=== PATIENT | female | born 2000 | race Caucasian/White ===

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

== ENCOUNTER 2019-04-18 19:24 | Emergency (ER) | payer OTHER ==
[2019-04-18 20:26] LABS: Bacteria/HPF None Seen HPF (None Seen); Bilirubin Negative (Negative); Blood, Urine Negative (Negative); Clarity Clear (Clear); Glucose, Urine (Dipstick) Normal (Negative); Leukocyte 75 Leu/uL (Negative); Nitrite Negative (Negative); Pregnancy Test - Urine (BHCG) Negative (Negative); Protein, Urine (Dipstick) 10 mg/dL (Neg-Trace); RBC/HPF 0-3 HPF (0-3); WBC/HPF 0-3 HPF (0-3)
[2019-04-18 20:27] LABS: Pregu Control Background? CLEAR/WHITE (CLR/WHITE); Pregu Control Bar Appear? YES (CONTROL BAR)
[2019-04-18] MEDS ORDERED: Azithromycin 250 MG TAB ONE (20:38)
[2019-04-18] MEDS ORDERED: cefTRIAXone\\ROCEPHIN 250 MG VIAL ONE (20:38)
[2019-04-18] MEDS ORDERED: Lidocaine 1% PF 5 ML VIAL ONE (20:38)
== END 2019-04-18 21:05 | disposition home or self-care (01) ==
LOC: ERS 19:24
DX: N89.8 Other specified noninflammatory disorders of vagina (principal); R30.0 Dysuria; Z87.891 Personal history of nicotine dependence
CPT/HCPCS: 81003; 81015; 81025; 87480; 87491; 87510; 87591; 87660; J0696; J2001

== ENCOUNTER 2020-10-06 22:14 | Emergency (ER) | payer OTHER ==
[2020-10-07 05:25] LABS: SARS-CoV-2 PCR by NAA Not Detected (NotDetected)
== END 2020-10-07 01:07 | disposition home or self-care (01) ==
LOC: ERS 22:14
DX: B34.9 Viral infection, unspecified (principal); Z20.822 Contact with and (suspected) exposure to COVID-19
CPT/HCPCS: 87081; 87430; 87635; 87804; 99283; U0003; U0005

== ENCOUNTER 2020-10-11 00:13 | Emergency (ER) | payer OTHER ==
[2020-10-11 02:19] LABS: Bilirubin Negative (Negative); Blood, Urine 3+ (Negative); Clarity Turbid (Clear); Glucose, Urine (Dipstick) Normal (Negative); Ketone, Urine 100 mg/dL (Negative); Leukocyte 500 Leu/uL (Negative); Nitrite Negative (Negative); Protein, Urine (Dipstick) 300 mg/dL (Neg-Trace); RBC/HPF Greater than 50 HPF (0-3); Specific Gravity, Urine 1.027 (1.002-1.036); Squamous Epithelial None Seen HPF (0-3); Urobilinogen Normal mg/dL (Less than 2); WBC/HPF Greater than 50 HPF (0-3)
[2020-10-11 02:28] LABS: Bacteria/HPF Rare-Few HPF (None Seen)
== END 2020-10-11 03:12 | disposition home or self-care (01) ==
LOC: ERS 00:13
DX: O20.0 Threatened abortion (principal); O23.41 Unspecified infection of urinary tract in pregnancy, first trimester; Z3A.01 Less than 8 weeks gestation of pregnancy; Z87.891 Personal history of nicotine dependence
CPT/HCPCS: 36415; 76856; 81003; 81015; 84702; 86850; 86900; 86901

== ENCOUNTER 2023-04-13 01:24 | Emergency (ER) | payer OTHER ==
[2023-04-13] MEDS ORDERED: Ketorolac Tromethamine 30 MG/ML VIAL ONE (01:50)
[2023-04-13] MEDS ORDERED: diphenhydrAMINE 50 MG/ML VIAL ONE (01:50)
[2023-04-13] MEDS ORDERED: Metoclopramide HCl 10 MG/2 ML VIAL ONE (01:50)
[2023-04-13 02:28] LABS: #Eosinphils 0.2 thou/uL (0.0-0.7); #Monocytes 0.4 thou/uL (0.11-0.59); #Neutrophils 4.5 thou/uL (1.40-6.50); %Basophils 0.3 % (0.0-1.0); %Eosinophils 2.2 % (0.0-10.0); %Lymphocytes 43.4 % (21.0-51.0); %Monocytes 4.4 % (0.0-10.0); %Neutrophils 49.5 % (42.0-75.0); Hematocrit 39.3 % (36.0-47.0); Hemoglobin 13.6 g/dL (12.0-16.0); Mean Corpuscular HGB CONC 34.6 g/dL (32.0-36.0); Mean Corpuscular Hemoglobin 32.2 pg (27.0-31.0); Mean Corpuscular Volume 92.9 fl (78.0-98.0); Mean Platelet Volume 9.7 fL (7.4-10.4); Platelet Count 310 10x3/uL (130-400); RBC Distribution Width 11.3 % (11.5-14.5); Red Blood Cell (RBC) Count 4.23 mill/uL (4.20-5.40)
[2023-04-13 02:37] LABS: BHCG - Serum Negative (NEGATIVE); Pregs Control Background? CLEAR/WHITE (CLR/WHITE); Pregs Control Bar Appear? YES (CONTROL BAR)
[2023-04-13 02:56] LABS: ALT (SGPT) 80 U/L (8-55); AST (SGOT) 35 U/L (5-34); Albumin 4.2 g/dL (3.5-5.0); Alkaline Phosphatase 140 U/L (40-110); Anion Gap 14 mmol/L (10-20); BUN (Urea Nitrogen) 6 mg/dL (7.0-18.7); Bilirubin, Total 0.5 mg/dL (0.2-1.2); Calc. Creatinine Clearance 0 mL/min (70-130); Calcium 8.7 mg/dL (7.8-10.44); Carbon Dioxide 22 mmol/L (22-29); Chloride 108 mmol/L (98-107); Estimated GFR 127; Globulin 3.1 g/dL (2.4-3.5); Glucose 86 mg/dL (70-105); Magnesium 2.1 mg/dL (1.6-2.6); Potassium 3.6 mmol/L (3.5-5.1); Protein, Total 7.3 g/dL (6.0-8.3); Sodium 140 mmol/L (136-145)
== END 2023-04-13 02:45 | disposition home or self-care (01) ==
LOC: ERS 01:24
DX: G44.209 Tension-type headache, unspecified, not intractable (principal); M62.830 Muscle spasm of back; F17.290 Nicotine dependence, other tobacco product, uncomplicated
CPT/HCPCS: 80053; 83735; 84703; 85025; 96365; 96375; J1200; J1885; J2765

== ENCOUNTER 2023-06-18 21:28 | Emergency (ER) | payer OTHER ==
[2023-06-18 22:37] LABS: #Eosinphils 0.1 thou/uL (0.0-0.7); #Monocytes 0.5 thou/uL (0.11-0.59); #Neutrophils 8.2 thou/uL (1.40-6.50); %Basophils 0.2 % (0.0-1.0); %Eosinophils 0.9 % (0.0-10.0); %Monocytes 4.3 % (0.0-10.0); %Neutrophils 69.3 % (42.0-75.0); Hematocrit 40.6 % (36.0-47.0); Hemoglobin 13.9 g/dL (12.0-16.0); Mean Corpuscular HGB CONC 34.2 g/dL (32.0-36.0); Mean Corpuscular Volume 93.3 fl (78.0-98.0); Mean Platelet Volume 10.1 fL (7.4-10.4); Platelet Count 338 10x3/uL (130-400); RBC Distribution Width 11.4 % (11.5-14.5); Red Blood Cell (RBC) Count 4.35 mill/uL (4.20-5.40); White Blood Cell (WBC) Count 11.9 10x3/uL (4.8-10.8)
[2023-06-18 23:09] LABS: ALT (SGPT) 80 U/L (8-55); AST (SGOT) 44 U/L (5-34); Albumin 4.1 g/dL (3.5-5.0); Alkaline Phosphatase 156 U/L (40-110); Anion Gap 15 mmol/L (10-20); BUN (Urea Nitrogen) 7 mg/dL (7.0-18.7); Bilirubin, Total 0.5 mg/dL (0.2-1.2); Calc. Creatinine Clearance 0 mL/min (70-130); Calcium 9.1 mg/dL (7.8-10.44); Carbon Dioxide 22 mmol/L (22-29); Chloride 106 mmol/L (98-107); Estimated GFR 122; Globulin 3.6 g/dL (2.4-3.5); Glucose 107 mg/dL (70-105); Lipase 34 U/L (8-78); Potassium 3.5 mmol/L (3.5-5.1); Protein, Total 7.7 g/dL (6.0-8.3); Sodium 139 mmol/L (136-145)
[2023-06-18 23:24] LABS: Pregnancy Test - Urine (BHCG) Negative (Negative); Pregu Control Background? CLEAR/WHITE (CLR/WHITE); Pregu Control Bar Appear? YES (CONTROL BAR); Specific Gravity 1.036 (1.002-1.036)
[2023-06-18 23:26] LABS: Bacteria/HPF 4+ HPF (None Seen); Bilirubin Negative (Negative); Blood, Urine 2+ (Negative); CAUTI Indications for Culture Pelvic or flank pain; Clarity Extra Turbid (Clear); Glucose, Urine (Dipstick) Normal (Negative); Ketone, Urine Negative (Negative); Leukocyte 500 Leu/uL (Negative); Nitrite Negative (Negative); Protein, Urine (Dipstick) 50 mg/dL (Neg-Trace); RBC/HPF 21-50 HPF (0-3); Specific Gravity, Urine 1.036 (1.002-1.036); Squamous Epithelial 21-50 HPF (0-3); Urobilinogen 3 mg/dL (Less than 2); WBC/HPF Greater than 50 HPF (0-3)
[2023-06-18] MEDS ORDERED: cefTRIAXone (ROCEPHIN) 500 MG VIAL ONE (23:26)
[2023-06-18] MEDS ORDERED: Lidocaine 1% PF 5 ML VIAL ONE (23:26)
[2023-06-18] MEDS ORDERED: Ondansetron ODT 4 MG TAB ONE (23:26)
[2023-06-18 23:27] LABS: Urine Culture Reflex Yes Yes
[2023-06-19 01:04] LABS: Bacteria/HPF None Seen HPF (None Seen); Bilirubin Negative (Negative); Blood, Urine Negative (Negative); CAUTI Indications for Culture Pelvic or flank pain; Clarity Clear (Clear); Glucose, Urine (Dipstick) Normal (Negative); Ketone, Urine Trace mg/dL (Negative); Leukocyte 75 Leu/uL (Negative); Nitrite Negative (Negative); Protein, Urine (Dipstick) 20 mg/dL (Neg-Trace); RBC/HPF 0-3 HPF (0-3); Specific Gravity, Urine 1.038 (1.002-1.036); Squamous Epithelial 0-3 HPF (0-3); WBC/HPF 0-3 HPF (0-3); pH, Urine 5.5 (5.0-9.0)
[2023-06-19 01:07] LABS: Urine Culture Reflex No No
[2023-06-19 19:57] LABS: Chlam.trachomatis by PCR,Urine Not Detected (NotDetected); GC N.gonorrhoeae PCR,UrineVOID Not Detected (NotDetected)
[2023-06-19 19:57] LABS: Chlamydia by PCR, Vaginal Swab Not Detected (NotDetected); GC by PCR, Vaginal Swab Not Detected (NotDetected)
== END 2023-06-19 02:00 | disposition home or self-care (01) ==
LOC: ERS 21:28
DX: R10.9 Unspecified abdominal pain (principal); R11.2 Nausea with vomiting, unspecified; F17.290 Nicotine dependence, other tobacco product, uncomplicated
CPT/HCPCS: 36415; 80053; 81001; 81025; 83690; 85025; 87086; 87480; 87491; 87510; 87591; 87660; 96372; 99284; J0696; Q0162

== ENCOUNTER 2024-01-02 18:04 | Emergency (ER) | payer OTHER ==
[2024-01-02 19:03] LABS: Bacteria/HPF None Seen HPF (None Seen); Bilirubin Negative (Negative); Blood, Urine Negative (Negative); CAUTI Indications for Culture Pelvic or flank pain; Clarity Clear (Clear); Glucose, Urine (Dipstick) Normal (Negative); Ketone, Urine Negative (Negative); Leukocyte Negative Leu/uL (Negative); Nitrite Negative (Negative); Protein, Urine (Dipstick) 10 mg/dL (Neg-Trace); RBC/HPF 0-3 HPF (0-3); Specific Gravity, Urine 1.025 (1.002-1.036); Squamous Epithelial 0-3 HPF (0-3); Urobilinogen Normal mg/dL (Less than 2); WBC/HPF 0-3 HPF (0-3)
[2024-01-02 19:16] LABS: Pregnancy Test - Urine (BHCG) Negative (Negative); Pregu Control Background? CLEAR/WHITE (CLR/WHITE); Pregu Control Bar Appear? YES (CONTROL BAR); Specific Gravity 1.025 (1.002-1.036); Urine Culture Reflex No No
[2024-01-03 13:53] LABS: Chlamydia by PCR, Vaginal Swab Not Detected (NotDetected); GC by PCR, Vaginal Swab Not Detected (NotDetected)
== END 2024-01-02 19:32 | disposition left against medical advice (07) ==
LOC: ERS 18:04
DX: Z53.21 Procedure and treatment not carried out due to patient leaving prior to being seen by health care provider (principal)
CPT/HCPCS: 81001; 81025; 87480; 87491; 87510; 87591; 87660